=== PATIENT | female | born 1990 | race Caucasian/White ===

== ENCOUNTER 2020-03-15 09:41 | Emergency (ER) | payer OTHER ==
[~2020-03-15 09:41] MED LIST: ATIVAN0.5 MG PO; FLEXERIL 10 MG10 MG PO; IBUPROFEN600 MG PO; IBUPROFEN800 MG PO; KEPPRA500 MG PO; LEVETIRACETAM500 M1 PO; MACROBID 100 M100 MG PO; MEDROL4 MG PO; NAPROSYN500 MG PO; PENVEE K 500 M500 MG PO; PREDNISONE 50 M50 MG PO; PREDNISONE20 MG PO; VISTARIL25 MG PO
[2020-03-15 10:53] LABS: HEMOGLOBIN 13.4 gm/dl (12.3-15.3); RED BLOOD COUNT 4.31 M/UL (4.00-5.10); WHITE BLOOD COUNT 7.3 K/UL (4.5-11.0)
[2020-03-15 11:15] LABS: BUN/CREATININE RATIO 10 (0-10)
== END 2020-03-15 13:29 | disposition home or self-care (01) ==
LOC: ER1 09:41
PROVIDERS: Physician Assistant
DX: K62.89 Other specified diseases of anus and rectum (principal); K76.0 Fatty (change of) liver, not elsewhere classified
CPT/HCPCS: 80053; 82272; 84703; 85025; 99284; Q9967

== ENCOUNTER 2021-08-26 06:42 | Emergency (ER) | payer OTHER ==
[2021-08-26 07:17] LABS: HEMOGLOBIN 14.1 gm/dl (12.3-15.3); RED BLOOD COUNT 4.51 M/UL (4.00-5.10); WHITE BLOOD COUNT 8.6 K/UL (4.5-11.0)
[2021-08-26] MEDS ORDERED: OMNICEF 300 MG300 MG PO (10:36)
[2021-08-26] MEDS ORDERED: KEPPRA500 MG PO (10:36)
[2021-08-26 13:24] LABS: BUN/CREATININE RATIO 13 (0-10)
[2021-08-28 08:14] LABS: AMPHETAMINES, URINE Negative ng/mL (Cutoff=1000); BARBITURATE Negative ng/mL (Cutoff=200); BENZODIAZEPINES Negative ng/mL (Cutoff=200); CANNABINOIDS Negative ng/mL (Cutoff=20); COCAINE (METABOLITE) Negative ng/mL (Cutoff=300); CREATININE 53.8 mg/dL (20.0-300.0); MEPERIDINE Negative ng/mL (Cutoff=200); METHADONE Negative ng/mL (Cutoff=300); OPIATES Negative ng/mL (Cutoff=300); PHENCYCLIDINE Negative ng/mL (Cutoff=25); PROPOXYPHENE Negative ng/mL (Cutoff=300)
== END 2021-08-26 13:42 | disposition home or self-care (01) ==
LOC: ER1 06:42
PROVIDERS: Emergency Medicine
DX: S13.4XXA Sprain of ligaments of cervical spine, initial encounter (principal); S20.219A Contusion of unspecified front wall of thorax, initial encounter; N39.0 Urinary tract infection, site not specified; R56.9 Unspecified convulsions; M54.9 Dorsalgia, unspecified; V49.9XXA Car occupant (driver) (passenger) injured in unspecified traffic accident, initial encounter; Z51.81 Encounter for therapeutic drug level monitoring
CPT/HCPCS: 36600; 70450; 71260; 72125; 80053; 80307; 81001; 82803; 83605; 84703; 85025; 85610; 85730; 87086; 93005; 96374; 96376; 99284; G0480; J1953; Q9967